=== PATIENT | female | born 1980 | race Caucasian/White ===

== ENCOUNTER 2025-01-23 09:56 | Emergency (ER) | payer OTHER, SELFPAY ==
[2025-01-23 10:00] VITALS: BP 138/100; PULSE 102; RESP 18; TEMP 36.5; O2SAT 97; BMI 20.3
--- NOTE | 2025-01-23 10:05 | ED.GENADULT ---
HPI - General Adult General Chief complaint: Abdominal Pain Stated complaint: Right side abdominal pain Time Seen by Provider: 01/23/25 09:59 Source: patient Mode of arrival: Ambulatory History of Present Illness HPI narrative: 44-year-old woman with a history of ADHD presents with acute onset severe right upper quadrant pain at approximately 8:00 a.m. this morning. She had her usual protein shake with minimal fat this morning. No fevers or chills. Pain is significant enough that she is having difficulty standing up. She describes it in the right upper quadrant and the upper right side for abdomen. She had a normal bowel movement yesterday does occasionally have difficulty with constipation. Does not feel bloated or constipated today. No prior history of kidney stones, no fevers, cough, chills, dysuria, vaginal discharge Related Data Home Medications Medication Instructions Recorded Confirmed loratadine-pseudoephedrine ER 10 1 tab PO DAILY 02/19/18 10/06/22 mg-240 mg tablet,extended [id number] (Claritin-D 24 Hour) Previous Rx's Medication Instructions Recorded valacyclovir 500 mg tablet 500 mg PO BID PRN herpes #30 tabs 04/10/18 norethindrone 0.4 mg-ethinyl 1 tab PO DAILY #336 tabs 05/14/18 estradiol 35 mcg tablet (Philith) citalopram 40 mg tablet 40 mg PO DAILY #90 tabs 01/08/24 hydroxyzine HCl 10 mg tablet 10 mg PO TID #90 tabs 01/08/24 dextroamphetamine-amphetamine ER 30 mg PO DAILY #30 caps 11/04/24 30 mg 24hr capsule,extend release dextroamphetamine-amphetamine ER 30 mg PO DAILY #30 caps 11/06/24 30 mg 24hr capsule,extend release dextroamphetamine-amphetamine ER 30 mg PO DAILY #30 caps 11/06/24 30 mg 24hr capsule,extend release lamotrigine 200 mg tablet 200 mg PO DAILY #90 tabs 12/02/24 dextroamphetamine-amphetamine 10 10 mg PO DAILY #30 tabs 01/06/25 mg tablet Allergies Allergy/AdvReac Type Severity Reaction Status Date / Time naproxen Allergy Severe TONGUE Verified 01/23/25 10:04 SWELLS azithromycin Allergy Mild DOESN'T Verified 01/23/25 10:04 WORK fluconazole Allergy Unknown BOILS Verified 01/23/25 10:04 Review of Systems Review of Systems Narrative: Pertinent positive and negative findings as per HPI Patient History Medical History Bipolar II disorder Lumbar spine pain Wrist fracture Abnormal Pap smear of cervix Herpes (2014) HPV (human papilloma virus) infection Chicken pox Depression ADD (attention deficit disorder) without hyperactivity Surgical History Status post breast biopsy (05/26/14) Family History Brother Age: 48 Bipolar 1 disorder Mental health problem Father Age: 73 Hyperlipidemia Hepatitis C Hypertension Grandmother Diabetes mellitus Stroke Mother Age: 75 Hypothyroid Depression High cholesterol Mental health problem Grandfather Asthma Heart disease CAD (coronary artery disease) Grandmother Hypertension Hyperlipidemia Heart disease Mental health problem Failure to thrive Depression Grandfather Lung cancer Social History Smoking Status: Former smoker Smoking Status: Former smoker Exam Initial Vital Signs Initial Vital Signs: Vital Signs Temperature 97.7 F 01/23/25 10:00 Pulse Rate 102 H 01/23/25 10:00 Respiratory Rate 18 01/23/25 10:00 Blood Pressure 138/100 H 01/23/25 10:00 Pulse Oximetry 97 01/23/25 10:00 Oxygen Delivery Method Room Air 01/23/25 10:00 General: Healthy appearing, in a moderate amount of pain. Able to give a complete and coherent history. Well-nourished well-developed HEENT: Moist mucous membranes, normal sclera with reactive pupils, Respiratory: Lungs are clear to auscultation, no wheezing no rales no rhonchi. Full and symmetrical air movement Cardiac: Regular rate and rhythm no murmurs no bruits Abdomen: Soft, Tender into the right upper quadrant without rebound or guarding. No specific right lower quadrant flank pain Skin: Warm and dry, no rashes Neurologic: Grossly neurologically intact with no obvious asymmetries or abnormalities Extremities: No trauma, well perfused Psych: Cooperative, appropriate insight and affect Course Orders Ordered: ED Orders 01/23/25 10:04 US abdomen limited Stat UA Complete [Urinalysis and Microscopic] Stat 01/23/25 10:15 Complete Blood Count AUTO DIFF Stat Comprehensive Metabolic Panel Stat Lipase Stat Discontinued Medications Ondansetron HCl (Ondansetron 4 Mg/2 Ml Inj) 4 mg IV NOW ONE Stop: 01/23/25 10:05 Last Admin: 01/23/25 10:24 Dose: 4 mg Documented By: IVETTE Vital Signs Vital signs: Vital Signs - 8 hr 01/23/25 10:00 01/23/25 11:30 Temperature 97.7 F Pulse Rate 102 H 92 H Respiratory Rate 18 Blood Pressure 138/100 H 141/90 H Pulse Oximetry 97 100 Oxygen Delivery Method Room Air Room Air Medical Decision Making Lab Data 01/23/25 10:15 01/23/25 10:15 Labs: Lab Results 01/23/25 Range/Units 10:15 WBC 6.6 (4.5-11.0) X10^3/uL RBC 3.96 L (4.0-5.2) X10^6/uL Hgb 13.2 (12.0-16.0) g/dL Hct 37.9 (36-46) % MCV 95.8 (80-100) fL MCH 33.4 (26-34) PG MCHC 34.9 (30-36) % RDW 13.7 (11.6-14.8) % Plt Count 341 (150-400) X10^3/uL Neut % (Auto) 69.4 (50-75) % Lymph % (Auto) 17.0 L (25-40) % [place] % (Auto) 10.3 (3-14) % Eos % (Auto) 2.8 (2-4) % Baso % (Auto) 0.5 (0-2) % Neut # (Auto) 4600 (7239-3127) /uL Lymph # (Auto) 1100 (2498-0735) /uL [place] # (Auto) 700 (0-900) /uL Eos # (Auto) 200 (0-450) /uL Baso # (Auto) 0 (0-100) /uL Sodium 138 (137-145) mmol/L Potassium 3.7 (3.4-5.1) mmol/L Chloride 99 (98-107) mmol/L Carbon Dioxide 34 H (22-32) mmol/L BUN 29 H (7-17) mg/dL Creatinine 0.81 (0.52-1.04) mg/dL Estimated GFR > 60 (>60) mL/min BUN/Creatinine Ratio 35.8 H (6-22) Glucose 91 (70-99) mg/dL Calcium 9.2 (8.4-10.2) mg/dL Total Bilirubin 0.4 (0.2-1.3) mg/dL AST 52 H (14-36) IU/L ALT 39 H (<35) IU/L Alkaline Phosphatase 84 (38-126) U/L Total Protein 7.3 (6.3-8.2) g/dL Albumin 4.3 (3.5-5.0) g/dL Globulin 3.0 (1.7-4.1) g/dL Albumin/Globulin Ratio 1.4 (1.0-2.8) Lipase 239 (23-300) U/L Imaging Data US - abdomen: Radiologist's Impression: PROCEDURE: US ABDOMEN LIMITED INDICATIONS: RUQ pain TECHNIQUE: Real-time scanning was performed of the abdominal and retroperitoneal organs, with image documentation. COMPARISON: None. FINDINGS: Liver: Liver is normal in size and homogeneous in echotexture. Gallbladder: No gallstones. No wall thickening. No pericholecystic edema. Negative sonographic Friedman's sign. Biliary ducts: Intrahepatic bile ducts are non-dilated. Extrahepatic bile duct caliber measures 1.7 mm. Normal is 6-7 mm or less in diameter, or 10 mm or less post-cholecystectomy. Pancreas: Visualized portions of the pancreas are sonographically normal. Miscellaneous: No free abdominal fluid. IMPRESSION: Unremarkable right upper quadrant ultrasound. No gallstone disease. Dictated by: Mekhi Morin M.D. on 01/23/2025 at 11:11 MDM Narrative Medical decision making narrative: CC:Acute right upper quadrant pain Complicating co-morbidities: history of ADHD, bipolar 2 Data collected from: patient Differential considered: gallbladder disease, kidney stone, constipation, katherine donna Gilberto syndrome seems far less likely and she has no pelvic pain Exam documented above, pertinent findings include: moderate right upper quadrant tenderness over her gallbladder without rebound or guarding Lab Test results independently reviewed as above. Pertinent findings: CBC is unremarkable metabolic panel is reassuring, minimal elevation to AST and ALT at 52 and 39 respectively Imaging studies independently reviewed: ultrasound of the right upper quadrant does not show any gallbladder disease elevated ducts or gallstone Treatments: patient was given Domi Discussion: 44-year-old woman who presents with the acute right upper quadrant pain. Possibility of gallbladder disease, ulcer, constipation, kidney stone are all entertained. Workup is unremarkable. Ultrasound does not show any gallstones or gallbladder pathology. Blood work is reassuring patient is re-evaluated, pain is significantly improved. All findings are reviewed with her. With shared decision-making we opted to go ahead and have her go home with watchful waiting. We did talk about using a laxative or stool softener to see if fully emptying her bowels helps with the pain. She notes in the past she has sometimes had some reflux/gastric irritation type pain. I suggested that if a large bowel movement does not relieve her pain that 14 days of [id number] omeprazole to see if this reduces any irritation of the gastric lining maybe helpful. If she continues to have pain or develop new findings she does need to be seen by her primary care physician. At this point there was no indication for additional workup or hospitalization she is safe for discharge Discharge Plan Departure Patient Disposition: Home Clinical Impression: Right upper quadrant abdominal pain Instructions: DI for Abdominal Pain-Adult Activity Restrictions/Additional Instructions: thank you for coming in today your ultrasound is nice and normal, there was no sign of gallbladder disease or gallstones. Your blood work was very reassuring, no infections or other concerns I am going to suggest that you try a stool softener, MiraLax or other laxative to see if you can completely empty out your bowels and see if this resolves the pain. If this does not, I think it would be reasonable to try omeprazole, the [id number] size 20 mg, for 2 weeks to see if this helps if you are still having pain, symptoms get worse or you develop new findings I would recommend follow up with your primary care physician it was great to see you again! Prescriptions: No Action hydroxyzine HCl 10 mg tablet 10 mg PO TID Qty: 90 3RF Rx Instructions: Take by mouth 3 times a day as needed for anxiety citalopram 40 mg tablet 40 mg PO DAILY Qty: 90 3RF dextroamphetamine-amphetamine 30 mg capsule,extended release 24hr 30 mg PO DAILY Qty: 30 0RF Rx Instructions: Earliest fill date 12/05/2024. dextroamphetamine-amphetamine 30 mg capsule,extended release 24hr 30 mg PO DAILY Qty: 30 0RF Rx Instructions: Earliest fill date 01/04/2025. loratadine-pseudoephedrine [Claritin-D 24 Hour] 10-240 mg tablet extended release 24 hr 1 tab PO DAILY norethindrone-ethin estradiol [Philith] 0.4-35 mg-mcg tablet 1 tab PO DAILY Qty: 336 0RF dextroamphetamine-amphetamine 30 mg capsule,extended release 24hr 30 mg PO DAILY Qty: 30 0RF Rx Instructions: Earliest fill date 11/04/2024 lamotrigine 200 mg tablet 200 mg PO DAILY Qty: 90 0RF dextroamphetamine-amphetamine 10 mg tablet 10 mg PO DAILY Qty: 30 0RF Rx Instructions: Take as afternoon booster dose. Earliest fill date 01/06/2025 valacyclovir 500 mg tablet 500 mg PO BID PRN (Reason: herpes) Qty: 30 6RF Referrals: Kami Garrison ARNP [Primary Care Provider] - Stand Alone Forms: Patient Portal/API/Survey
[2025-01-23 10:12] VITALS: PULSE 91; O2SAT 100
[2025-01-23 10:13] VITALS: BP 149/94; PULSE 93; O2SAT 100
[2025-01-23] MEDS: ONDANSETRON 4 MG/2 ML INJ IV (10:24)
[2025-01-23 10:30] VITALS: BP 147/91; PULSE 98; O2SAT 100
[2025-01-23 10:33] LABS: Add Manual Diff / Slide Review NO; Basophils Absolute Auto 0 /uL (0-100); Basophils Percent Auto 0.5 % (0-2); Eosinophils Absolute Auto 200 /uL (0-450); Eosinophils Percent Auto 2.8 % (2-4); Hematocrit 37.9 % (36-46); Hemoglobin 13.2 g/dL (12.0-16.0); Lymphocytes Absolute Auto 1100 /uL (1100-4500); Mean Corpuscular HGB Conc 34.9 % (30-36); Mean Corpuscular Hemoglobin 33.4 PG (26-34); Mean Corpuscular Volume 95.8 fL (80-100); Monocytes Absolute Auto 700 /uL (0-900); Monocytes Percent Auto 10.3 % (3-14); Neutrophils Absolute Auto 4600 /uL (1500-7000); Neutrophils Percent Auto 69.4 % (50-75); Platelet Count 341 X10^3/uL (150-400); Red Blood Cell Count 3.96 X10^6/uL (4.0-5.2); Red Cell Distribution Width 13.7 % (11.6-14.8); White Blood Cell Count 6.6 X10^3/uL (4.5-11.0)
[2025-01-23 10:43] LABS: Alanine Aminotransferase 39 IU/L (<35); Albumin 4.3 g/dL (3.5-5.0); Albumin Globulin Ratio 1.4 (1.0-2.8); Alkaline Phosphatase 84 U/L (38-126); Aspartate Aminotransferase 52 IU/L (14-36); BUN Creatinine Ratio 35.8 (6-22); Bilirubin Total 0.4 mg/dL (0.2-1.3); Blood Urea Nitrogen 29 mg/dL (7-17); Calcium 9.2 mg/dL (8.4-10.2); Carbon Dioxide 34 mmol/L (22-32); Chloride 99 mmol/L (98-107); Estimated Glomerular Filt Rate > 60 mL/min (>60); Glucose 91 mg/dL (70-99); HEMOLYSIS < 15 (0-50); Lipase 239 U/L (23-300); Potassium 3.7 mmol/L (3.4-5.1); Sodium 138 mmol/L (137-145); Total Protein 7.3 g/dL (6.3-8.2)
[2025-01-23 11:00] VITALS: BP 133/85; PULSE 90; O2SAT 100
[2025-01-23 11:30] VITALS: BP 141/90; PULSE 92; O2SAT 100
== END 2025-01-23 12:17 | disposition home or self-care (01) ==
PROVIDERS: Emergency Provider Emergency Medicine; Family Provider Internal Medicine; PCP Internal Medicine
DX: R10.11 Right upper quadrant pain (principal)
CPT/HCPCS: 36415; 76705; 80053; 83690; 85025; 96374; 99284; J2405

== ENCOUNTER 2025-05-18 20:59 | Emergency (ER) | payer OTHER, SELFPAY ==
[2025-05-18] VITALS (37 sets, daily range): BP systolic 99–144; BP diastolic 55–93; PULSE 86–117; RESP 14–40; O2SAT 95–99
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
[2025-05-18 21:24] LABS: Add Manual Diff / Slide Review NO; Hematocrit 37.7 % (36-46); Hemoglobin 13.0 g/dL (12.0-16.0); Lymphocytes Absolute Auto 1900 /uL (1100-4500); Mean Corpuscular HGB Conc 34.6 % (30-36); Mean Corpuscular Hemoglobin 32.6 PG (26-34); Mean Corpuscular Volume 94.2 fL (80-100); Platelet Count 330 X10^3/uL (150-400)
[2025-05-18 21:34] LABS: Alanine Aminotransferase 42 IU/L (<35); Albumin 4.7 g/dL (3.5-5.0); Albumin Globulin Ratio 1.5 (1.0-2.8); Alkaline Phosphatase 72 U/L (38-126); Blood Urea Nitrogen 22 mg/dL (7-17); Calcium 8.8 mg/dL (8.4-10.2); Carbon Dioxide 25 mmol/L (22-32); Chloride 103 mmol/L (98-107); Estimated Glomerular Filt Rate > 60 mL/min (>60); Ethanol (ETOH) 282 mg/dL (<10); Globulin 3.1 g/dL (1.7-4.1); Glucose 97 mg/dL (70-99); HEMOLYSIS < 15 (0-50); Lactate (Lactic Acid) 2.1 mmol/L (0.7-2.1); Lipase 155 U/L (23-300); Potassium 3.6 mmol/L (3.4-5.1); Sodium 140 mmol/L (137-145); Total Protein 7.8 g/dL (6.3-8.2)
[2025-05-18] MEDS: TET,DIPH,PERTUSS(ACELL),VAC/PF 0.5 ML SYRINGE IM (21:35)
[2025-05-18] MEDS: HALOPERIDOL 5 MG/ML VIAL IV (21:36)
[2025-05-18 21:39] LABS: INR 1.0 (0.9-1.3); Prothrombin Time 10.8 SECONDS (9.4-12.5)
[2025-05-18 21:42] LABS: PTT Partial Thromboplastin Tim 28 SECONDS (25.1-36.5)
[2025-05-18] MEDS: SODIUM CHLORIDE 0.9% 1,000 ML 1000 ML IV (21:47)
--- NOTE | 2025-05-18 21:47 | PC.NURSE ---
Father (Saurabh) updated on plan of care. Pt gave verbal permission prior to share information.
[2025-05-18 21:50] LABS: HCG Quantitative /Beta subunit < 2.39 mIU/mL
[2025-05-18 22:55] LABS: Ur Creatinine Normal (Normal); Ur Specific Gravity Normal (Normal); Urine MDMA Negative (Negative); Urine Methamphetamines Negative (Negative); Urine THC Positive (Negative); Urine Tricyclic Antidepressant Negative (Negative); Urine pH Normal (Normal)
[2025-05-18 22:56] LABS: Reflexed Lactate in 2 Hours Y
[2025-05-18 23:07] LABS: Culture Indicated Urine Cult Not Indicated
--- NOTE | 2025-05-18 23:07 | EKG_ITS ---
[address] [address] Test Date: 2025-05-18 Pat Name: Renetta Richardson Department: [facility] Room: Gender: Female Graphic Design Specialist: ANSELMO : 1980 Requested By: Order Number: [id number] Reading MD: Saurabh Atkins MD Measurements Intervals [place] Rate: 87 P: 70 [place]: 142 QRS: 66 QRSD: 78 T: 56 QT: 414 QTc: 498 Interpretive Statements Normal sinus rhythm Prolonged QT Electronically Signed On 05-19-2025 5:58:19 PDT by Saurabh Atkins MD
[2025-05-18 23:33] LABS: Lactate 2HR (Lactic Acid Rflx) 2.2 mmol/L (0.7-2.1)
[2025-05-19] VITALS (64 sets, daily range): BP systolic 100–135; BP diastolic 54–87; PULSE 78–114; RESP 7–32; O2SAT 84–100
--- NOTE | 2025-05-19 05:45 | PC.NURSE ---
Fell out with frequent movements
[2025-05-19 06:00] LABS: Ethanol (ETOH) 40 mg/dL (<10)
== END 2025-05-19 06:24 | disposition home or self-care (01) ==
PROVIDERS: Emergency Provider Emergency Medicine; Family Provider Internal Medicine; PCP Internal Medicine
DX: S02.2XXA Fracture of nasal bones, initial encounter for closed fracture (principal); S01.21XA Laceration without foreign body of nose, initial encounter; F10.129 Alcohol abuse with intoxication, unspecified; F15.90 Other stimulant use, unspecified, uncomplicated; Y90.8 Blood alcohol level of 240 mg/100 ml or more; F12.90 Cannabis use, unspecified, uncomplicated; V89.2XXA Person injured in unspecified motor-vehicle accident, traffic, initial encounter; Z23 Encounter for immunization
CPT/HCPCS: 36415; 70450; 70486; 71275; 72125; 74177; 80053; 80305; 80320; 81003; 81015; 81025; 83605; 83690; 84702; 85025; 85610; 85730; 86850; 86900; 86901; 87086; 90471; 93005; 93010; 96361; 96365; 96375; 99284; 99285; 90715; J0690; J1630; J2060; Q9967

== ENCOUNTER → 2025-07-18 15:28 | Outpatient (CLI) | payer OTHER, SELFPAY ==
[2025-07-21 04:08] LABS: Lamotrigine Lamictal 6.0 ug/mL (2.0-20.0)
== END ==
PROVIDERS: PCP Internal Medicine; Referring Provider Psychiatry & Neurology Psychiatry; Visit Provider Psychiatry & Neurology Psychiatry
DX: Z79.899 Other long term (current) drug therapy (principal)
CPT/HCPCS: 36415; 80175